=== PATIENT | female | born 1985 | race Asian ===

== ENCOUNTER 2024-06-09 14:13 | Emergency (ER) | payer BC ==
[~2024-06-09] VITALS: Ht 170.2 cm; Wt 58.9 kg
[2024-06-09 14:26] VITALS: O2SAT 100
[2024-06-09] MEDS ORDERED: ONDA-239 PO (15:20)
[2024-06-09] MEDS ORDERED: NALO4SPR BOTHNSTRLS (15:20)
[2024-06-09] MEDS: ONDANSETRON 4MG ODT PO ONE (15:59)
[2024-06-09] MEDS: CLONAZEPAM 1MG TABLET PO ONE (16:04)
[2024-06-09] MEDS: DIAZEPAM 2 MG TABLET PO ONE (16:07)
[2024-06-09 16:10] VITALS: BP 110/65; PULSE 78; RESP 16; TEMP 36.61404; O2SAT 100
[2024-06-10] MEDS ORDERED: BUPR1FIL5 SL (02:13)
[2024-06-10] MEDS ORDERED: ONDA4TAB50 MT (02:13)
== END 2024-06-09 16:21 | disposition home or self-care (01) ==
LOC: ER 14:30
DX: F32.9 Major depressive disorder, single episode, unspecified (principal); F41.9 Anxiety disorder, unspecified; F11.10 Opioid abuse, uncomplicated; Z79.899 Other long term (current) drug therapy; Z76.0 Encounter for issue of repeat prescription; Z88.1 Allergy status to other antibiotic agents
CPT/HCPCS: 99283; Q0162

== ENCOUNTER 2024-06-10 00:03 | Emergency (ER) | payer BC ==
[~2024-06-10] VITALS: Ht 170.2 cm; Wt 60.0 kg
[~2024-06-10 00:03] MED LIST: NALO4SPR BOTHNSTRLS; ONDA-239 PO
[2024-06-10 00:25] VITALS: BP 103/65; PULSE 100; TEMP 98.8; O2SAT 100
[2024-06-10] MEDS ORDERED: BUPR1FIL5 SL (02:13)
[2024-06-10] MEDS ORDERED: ONDA4TAB50 MT (02:13)
[2024-06-10] MEDS: ONDANSETRON 4MG ODT PO NR (02:30)
[2024-06-10] MEDS: CLONAZEPAM 1MG TABLET PO ONE (03:30)
[2024-06-10] MEDS: KETOROLAC 30MG/ML VIAL IM ONE (03:30)
[2024-06-10] MEDS: ONDANSETRON 4MG ODT PO ONE (03:30)
[2024-06-10 03:45] VITALS: RESP 18
== END 2024-06-10 04:37 | disposition home or self-care (01) ==
LOC: ER 00:12
DX: R11.0 Nausea (principal); F11.10 Opioid abuse, uncomplicated; J45.909 Unspecified asthma, uncomplicated; F31.9 Bipolar disorder, unspecified; Z88.1 Allergy status to other antibiotic agents
CPT/HCPCS: 96372; 99283; Q0162; J1885; Z7610